=== PATIENT | female | born 1990 | race Caucasian/White ===

== ENCOUNTER 2018-03-10 15:53 | Emergency (ER) | payer MEDICAID, OTHER ==
[2018-03-10] MEDS ORDERED: Sodium Chloride 0.9% 1,000 ML IV ONE ×2 (16:05→18:00)
[2018-03-10] MEDS ORDERED: Folic Acid 1 MG Tab PO ONE (16:07)
[2018-03-10] MEDS ORDERED: Thiamine 100 MG in Sodium Chloride 0.9% 100 ML IV ONE (16:07)
[2018-03-10] MEDS ORDERED: diphenhydrAMINE 50 MG/ML SDV IVPUSH ONE (16:21)
[2018-03-10] MEDS ORDERED: Ondansetron 4 MG/2 ML SDV IVPUSH ONE (16:40)
--- NOTE | 2018-03-10 17:29 | EDM.PDOC ---
ED HPI GENERAL MEDICAL PROBLEM - General Chief Complaint: Drug or Alcohol Abuse Stated Complaint: ANXIETY Time Seen by Provider: 03/10/18 15:53 Source of Information: Reports: Patient, Family History Limitations: Reports: Respiratory Distress - History of Present Illness INITIAL COMMENTS - FREE TEXT/NARRATIVE: 27 y.o.w.f came with her SO the ed due to severe anxiety, hyperventilating and carpopedal spasm. Ptwas drinking in the past few days hard liquor. Las drink was last night. Pt denies Drug use, , no C/P. pt had those symptoms never before. No other acute medical issues. BP 144/83 puls ox 100 on RA temp 98.2 HR 140 Onset: Today Onset Date: 03/10/18 Onset Time: 14:00 Duration: Hour(s):, Getting Worse Location: Reports: Generalized Quality: Reports: Ache Severity: Moderate Improves with: Reports: Rest Worsens with: Reports: Movement Context: Reports: Other Associated Symptoms: Reports: Shortness of Breath, Other (hyperventilating) - Related Data Allergies Allergy/AdvReac Type Severity Reaction Status Date / Time sulfamethoxazole Allergy Rash Verified 10/14/14 11:03 [From Bactrim] trimethoprim [From Bactrim] Allergy Rash Verified 10/14/14 11:03 Home Meds: Home Meds Ciprofloxacin HCl [Cipro] 500 mg PO BID #20 tablet 03/10/18 [Rx] Social & Family History - Tobacco Use Smoking Status *Q: Never Smoker Second Hand Smoke Exposure: No - Alcohol Use Days Per Week of Alcohol Use: 0 - Recreational Drug Use Recreational Drug Use: No ED ROS GENERAL - Review of Systems Review Of Systems: Unable To Obtain - Physical Exam Exam: See Below Exam Limited By: Respiratory Distress General Appearance: Alert, WD/WN, Anxious, Moderate Distress Eye Exam: Bilateral Eye: Normal Inspection Ears: Normal External Exam, Normal Canal Nose: Normal Inspection, Normal Mucosa, No Blood Throat/Mouth: Normal Inspection, Normal Lips Head Exam: Atraumatic, Normocephalic Neck: Normal Inspection, Supple, Non-Tender, Full Range of Motion Respiratory/Chest: Lungs Clear, Normal Breath Sounds, Chest Non-Tender, Respiratory Distress (through hyperventilating) Cardiovascular: Normal Peripheral Pulses, Regular Rate, Rhythm, Tachycardia GI/Abdominal: Normal Bowel Sounds, Soft, Non-Tender, No Organomegaly (Female) Exam: Deferred Rectal (Female) Exam: Deferred Neuro Exam (Abbreviated): Alert, Oriented, CN II-XII Intact, Normal Cognition, Normal Gait Back Exam: Normal Inspection, Full Range of Motion Extremities: Normal Inspection, Normal Range of Motion, Non-Tender, No Pedal Edema Psychiatric: Anxious Skin Exam: Warm, Dry, Intact, Normal Color, No Rash Course - Vital Signs Text/Narrative:: 27 y.o.w.f came with her SO the ed due to severe anxiety, hyperventilating and carpopedal spasm. Ptwas drinking in the past few days hard liquor. Las drink was last night. Pt denies Drug use, , no C/P. pt had those symptoms never before. No other acute medical issues. BP 144/83 puls ox 100 on RA temp 98.2 HR 140 PE: 27 year old w f ETOH abuse ( a lot?) came to the ed with hyperventilation, anxiety and carpopedal spasm Labs; CBC nl, Na 13 Cl 93 UA pos for UTI UDS neg, ETOH 0.03 Impression: Hyperventilation, Dehydration,anxiety, UTI, H/O ETOH abuse Tx: NRBM, NS. Benadryl, Thiamin, Cipro Reecam: Improved, was ambulating fine, was in her usual state of health on D/C Plan: D/C with instruction Last Recorded V/S: Last Vital Signs Temp 36.8 C 03/10/18 16:14 Pulse 132 H 03/10/18 16:55 Resp 24 H 03/10/18 16:14 BP 144/83 H 03/10/18 16:14 Pulse Ox 100 03/10/18 16:55 - Orders/Labs/Meds Orders: Active Orders 24 hr Category Date Time Status DRUG SCREEN, URINE ALERE [URCHEM] Stat Lab 03/10/18 17:15 Ordered HCG QUALITATIVE,URINE [URCHEM] Stat Lab 03/10/18 19:12 Ordered UA W/MICROSCOPIC [URIN] Stat Lab 03/10/18 17:15 Ordered Labs: Laboratory Tests 03/10/18 03/10/18 03/10/18 Range/Units 16:25 16:25 16:25 WBC 8.6 (4.5-12.0) X10-3/uL RBC 4.21 (3.23-5.20) x10(6)uL Hgb 14.1 (11.5-15.5) g/dL Hct 41.0 (30.0-51.3) % MCV 97.2 H (80-96) fL MCH 33.4 (27.7-33.6) pg MCHC 34.4 (32.2-35.4) g/dL RDW 11.8 (11.5-15.5) % Plt Count 299 (125-369) X10(3)uL MPV 7.5 (7.4-10.4) fL Neut % (Auto) 78.7 (46-82) % Lymph % (Auto) 15.9 (13-37) % [place] % (Auto) 5.1 (4-12) % Eos % (Auto) 0 L (1.0-5.0) % Baso % (Auto) 0 (0-2) % Neut # (Auto) 6.8 (1.6-8.3) # Lymph # (Auto) 1.4 (0.6-5.0) # [place] # (Auto) 0.4 (0.0-1.3) # Eos # (Auto) 0.0 (0.0-0.8) # Baso # (Auto) 0.0 (0.0-0.2) # ABG pH (7.35-7.45) ABG pCO2 (35-45) mmHg ABG pO2 (83-108) mmHg ABG HCO3 (22-26) mmol/L ABG O2 Saturation (96-97) % ABG Base Excess (-2-2) Ko Test O2 Delivery Device Sodium 133 L (135-145) mmol/L Potassium 3.6 (3.5-5.3) mmol/L Chloride 93 L (100-110) mmol/L Carbon Dioxide 19 L (21-32) mmol/L BUN 14 (7-18) mg/dL Creatinine 1.0 (0.55-1.02) mg/dL Est Cr Clr Drug Dosing TNP Estimated GFR (MDRD) > 60 (>60) BUN/Creatinine Ratio 14.0 (9-20) Glucose 158 H (80-116) mg/dL Calcium 8.6 (8.6-10.2) mg/dL Urine Color (YELLOW) Urine Appearance (CLEAR) Urine pH (5.0-6.5) Ur Specific [place] (1.010-1.025) Urine Protein (NEGATIVE) mg/dL Urine Glucose (UA) (NEGATIVE) mg/dL Urine Ketones (NEGATIVE) mg/dL Urine Occult Blood (NEGATIVE) Urine Nitrite (NEGATIVE) Urine Bilirubin (NEGATIVE) Urine Urobilinogen (NEGATIVE) mg/dL Ur Leukocyte Esterase (NEGATIVE) Urine RBC (0) Urine WBC (0) Ur Squamous Epith Cells (NS,R,O) Urine Bacteria (NS) Urine Opiates Screen (NEGATIVE) Ur Oxycodone Screen (NEGATIVE) Ur Propoxyphene Screen (NEGATIVE) Ur Barbituates Screen (NEGATIVE) Ur Tricyclics Screen (NEGATIVE) Ur Phencyclidine Scrn (NEGATIVE) Ur Amphetamine Screen (NEGATIVE) Urine MDMA Screen (NEGATIVE) U Benzodiazepines Scrn (NEGATIVE) U Cocaine Metab Screen (NEGATIVE) U Marijuana (THC) Screen (NEGATIVE) Ethyl Alcohol < 0.03 (<0.03) % 03/10/18 03/10/18 03/10/18 Range/Units 16:34 17:15 17:15 WBC (4.5-12.0) X10-3/uL RBC (3.23-5.20) x10(6)uL Hgb (11.5-15.5) g/dL Hct (30.0-51.3) % MCV (80-96) fL MCH (27.7-33.6) pg MCHC (32.2-35.4) g/dL RDW (11.5-15.5) % Plt Count (125-369) X10(3)uL MPV (7.4-10.4) fL Neut % (Auto) (46-82) % Lymph % (Auto) (13-37) % [place] % (Auto) (4-12) % Eos % (Auto) (1.0-5.0) % Baso % (Auto) (0-2) % Neut # (Auto) (1.6-8.3) # Lymph # (Auto) (0.6-5.0) # [place] # (Auto) (0.0-1.3) # Eos # (Auto) (0.0-0.8) # Baso # (Auto) (0.0-0.2) # ABG pH 7.53 H (7.35-7.45) ABG pCO2 20 L (35-45) mmHg ABG pO2 78 L (83-108) mmHg ABG HCO3 17 L (22-26) mmol/L ABG O2 Saturation 87 L (96-97) % ABG Base Excess -3.2 L (-2-2) Ko Test Passed O2 Delivery Device Room air Sodium (135-145) mmol/L Potassium (3.5-5.3) mmol/L Chloride (100-110) mmol/L Carbon Dioxide (21-32) mmol/L BUN (7-18) mg/dL Creatinine (0.55-1.02) mg/dL Est Cr Clr Drug Dosing Estimated GFR (MDRD) (>60) BUN/Creatinine Ratio (9-20) Glucose (80-116) mg/dL Calcium (8.6-10.2) mg/dL Urine Color Yellow (YELLOW) Urine Appearance Slightly cloudy (CLEAR) Urine pH 6.0 (5.0-6.5) Ur Specific [place] 1.015 (1.010-1.025) Urine Protein Negative (NEGATIVE) mg/dL Urine Glucose (UA) Normal (NEGATIVE) mg/dL Urine Ketones 15 H (NEGATIVE) mg/dL Urine Occult Blood Negative (NEGATIVE) Urine Nitrite Negative (NEGATIVE) Urine Bilirubin Negative (NEGATIVE) Urine Urobilinogen Normal (NEGATIVE) mg/dL Ur Leukocyte Esterase Moderate H (NEGATIVE) Urine RBC 0-5 (0) Urine WBC 5-10 (0) Ur Squamous Epith Cells Few H (NS,R,O) Urine Bacteria Few H (NS) Urine Opiates Screen Negative (NEGATIVE) Ur Oxycodone Screen Negative (NEGATIVE) Ur Propoxyphene Screen Negative (NEGATIVE) Ur Barbituates Screen Negative (NEGATIVE) Ur Tricyclics Screen Negative (NEGATIVE) Ur Phencyclidine Scrn Negative (NEGATIVE) Ur Amphetamine Screen Negative (NEGATIVE) Urine MDMA Screen Negative (NEGATIVE) U Benzodiazepines Scrn Negative (NEGATIVE) U Cocaine Metab Screen Negative (NEGATIVE) U Marijuana (THC) Screen Negative (NEGATIVE) Ethyl Alcohol (<0.03) % Meds: Medications Discontinued Medications Generic Name Dose Route Start Last Admin Trade Name Freq PRN Reason Stop Dose Admin Ciprofloxacin 500 mg 03/10/18 17:44 03/10/18 18:55 Ciprofloxacin Hcl PO 03/10/18 17:45 500 mg ONETIME ONE Administration Diphenhydramine HCl 50 mg 03/10/18 16:21 03/10/18 16:28 Benadryl IVPUSH 03/10/18 16:22 50 mg ONETIME ONE Administration Folic Acid 1 mg 03/10/18 16:07 03/10/18 16:16 Folic Acid PO 03/10/18 16:08 1 mg ONETIME ONE Administration Sodium Chloride 1,000 mls @ 999 mls/hr 03/10/18 16:05 03/10/18 16:18 Normal Saline IV 03/10/18 17:05 999 mls/hr .BOLUS ONE Administration Thiamine HCl 100 mg/ Sodium 101 mls @ 202 mls/hr 03/10/18 16:07 03/10/18 16: 18 Chloride IV 03/10/18 16:08 202 mls/hr ONETIME ONE Administration Ondansetron HCl 8 mg 03/10/18 16:40 03/10/18 16:51 Zofran IVPUSH 03/10/18 16:41 8 mg ONETIME ONE Administration Departure - Departure Time of Disposition: 18:10 Disposition: Home, Self-Care 01 Condition: Good Clinical Impression: Hyperventilation syndrome, Dehydration, H/O ETOH abuse UTI (urinary tract infection) Qualifiers: Urinary tract infection type: acute cystitis Hematuria presence: without hematuria Qualified Code(s): N30.00 - Acute cystitis without hematuria - Discharge Information Prescriptions: Ciprofloxacin HCl [Cipro] 500 mg PO BID #20 tablet Instructions: Alcohol Withdrawal, Dehydration, Adult, [id number], Urinary Tract Infection, Adult, Ciprofloxacin tablets Referrals: Domenic Salomon MD [Primary Care Provider] - Forms: ED Department Discharge Additional Instructions: Please increase water intake, please avoid alcohol, please take the Cipro as recommended, please f/u, come back if your symptoms get worse acutely. - My Orders Last 24 Hours: My Active Orders 03/10/18 17:15 DRUG SCREEN, URINE ALERE [URCHEM] Stat UA W/MICROSCOPIC [URIN] Stat 03/10/18 19:12 HCG QUALITATIVE,URINE [URCHEM] Stat - Assessment/Plan Last 24 Hours: My Active Orders 03/10/18 17:15 DRUG SCREEN, URINE ALERE [URCHEM] Stat UA W/MICROSCOPIC [URIN] Stat 03/10/18 19:12 HCG QUALITATIVE,URINE [URCHEM] Stat
[2018-03-10] MEDS ORDERED: Ciprofloxacin 500 MG Tab PO ONE (17:44)
== END 2018-03-10 19:00 | disposition home or self-care (01) ==
LOC: FB.ED 15:53
DX: E86.0 Dehydration (principal); F41.9 Anxiety disorder, unspecified; F45.8 Other somatoform disorders; N30.00 Acute cystitis without hematuria; F10.10 Alcohol abuse, uncomplicated; Z88.2 Allergy status to sulfonamides; Z88.1 Allergy status to other antibiotic agents
CPT/HCPCS: 36415; 36600; 80048; 80305; 81001; 81025; 82803; 85025; 96361; 96365; 96375; 99284; A9270; G0480; J1200; J2405; J3411; J7030; J7040

== ENCOUNTER 2019-04-30 13:23 | Emergency (ER) | payer MEDICAID ==
[2019-04-30] MEDS ORDERED: Sodium Chloride 0.9% 1,000 ML IV ONE ×2 (13:37→14:19)
[2019-04-30] MEDS ORDERED: Thiamine 100 MG in Sodium Chloride 0.9% 100 ML IV ONE (13:40)
[2019-04-30] MEDS ORDERED: Sodium Chloride 0.9% 10 ML Syringe FLUSH PRN (13:40)
[2019-04-30] MEDS ORDERED: Thiamine 200 MG/2 ML MDV IM STA (13:41)
--- NOTE | 2019-04-30 13:48 | EDM.PDOCBH ---
ED HPI GENERAL MEDICAL PROBLEM - General Chief Complaint: Drug or Alcohol Abuse Stated Complaint: PANIC ATTACK AND WITHDRAW Time Seen by Provider: 04/30/19 13:23 Source of Information: Reports: Patient, Family (Mom) History Limitations: Reports: Other (anxious) - History of Present Illness INITIAL COMMENTS - FREE TEXT/NARRATIVE: 29 y.o.w.[place] came with her mom to the ED 1 days after she was heavily drinking ETOH because her boyfriend broke up with her. Pt was sober since June last year and started drinking yesterday again. Pt denied trauma. Pt is very anxious and restless, requesting Ativan, what she had in te past. Pt denies . No Trauma, no N/V/D no SOB or chest pain. No other acute Med issues. BP 143/90 Pulse 132 RR 20 Pulse ox 100% on RA. Temp 36.65 Onset Date: 04/29/19 Onset Time: 09:00 Duration: Hour(s):, Intermittent Location: Reports: Generalized Quality: Reports: Other (anxious) Severity: Moderate Improves with: Reports: Medication Worsens with: Reports: Other (ETOH withdrawl ) Context: Reports: Other (ETOH abuse > 24 hours ago. ) Associated Symptoms: Reports: Loss of Appetite Left hand Pain Score (Numeric/FACES): 3 - Related Data Allergies Allergy/AdvReac Type Severity Reaction Status Date / Time sulfamethoxazole Allergy Rash Verified 04/30/19 13:30 [From Bactrim] trimethoprim [From Bactrim] Allergy Rash Verified 04/30/19 13:30 Home Meds: Home Meds Magnesium Oxide [Magnesium] 400 mg PO DAILY #4 capsule 04/30/19 [Rx] Past Medical History Psychiatric History: Reports: Anxiety Social & Family History - Family History Family Medical History: Noncontributory - Caffeine Use Caffeine Use: Reports: Soda ED ROS GENERAL - Review of Systems Review Of Systems: See Below Constitutional: Reports: Decreased Appetite HEENT: Reports: No Symptoms Respiratory: Reports: No Symptoms Cardiovascular: Reports: No Symptoms Endocrine: Reports: No Symptoms GI/Abdominal: Reports: No Symptoms : Reports: No Symptoms Musculoskeletal: Reports: No Symptoms Skin: Reports: No Symptoms Neurological: Reports: No Symptoms Psychiatric: Reports: Anxiety Hematologic/Lymphatic: Reports: No Symptoms Immunologic: Reports: No Symptoms ED EXAM, BEHAVIORAL HEALTH - Physical Exam Exam: See Below Exam Limited By: Other (anxious) General Appearance: Alert, WD/WN, Moderate Distress Eye Exam: Bilateral Eye: Normal Inspection Ears: Normal External Exam, Normal Canal Nose: Normal Inspection, Normal Mucosa, No Blood Throat/Mouth: Normal Inspection, Normal Lips, Normal Voice, No Airway Compromise , Other (dry mucosal membrane) Head: Atraumatic, Normocephalic Neck: Normal Inspection, Supple, Non-Tender Respiratory/Chest: No Respiratory Distress, Lungs Clear, Normal Breath Sounds, Chest Non-Tender Cardiovascular: Regular Rate, Rhythm, No Edema, Tachycardia GI/Abdominal: Normal Bowel Sounds, Soft, Non-Tender, No Organomegaly, No Mass, Pelvis Stable (Female) Exam: Deferred Rectal (Female) Exam: Deferred Back Exam: Normal Inspection, Full Range of Motion Extremities: Normal Inspection, Normal Range of Motion, Non-Tender, Normal Capillary Refill Neurological: Alert, Normal Mood/Affect, CN II-XII Intact, Normal Cognition, No Motor/Sensory Deficits, Oriented x 3 Psychiatric: Alert, Oriented, Restless, Agitated Skin Exam: Warm, Dry, Intact, Normal color, No rash COURSE, BEHAVIORAL HEALTH COMP - Course Vital Signs: Last Vital Signs Temp 36.9 C 04/30/19 15:30 Pulse 91 04/30/19 15:30 Resp 16 04/30/19 15:30 BP 109/87 04/30/19 15:30 Pulse Ox 100 04/30/19 15:30 29 y.o.w.f came with her mom to the ED 1 days after she was heavily drinking ETOH because her boyfriend broke up with her. Pt was sober since June last year and started drinking yesterday again. Pt denied trauma. Pt is very anxious and restless, requesting Ativan, what she had in te past. Pt denies . No Trauma, no N/V/D no SOB or chest pain. No other acute Med issues. BP 143/90 Pulse 132 RR 20 Pulse ox 100% on RA. Temp 36.65 PE: WNWD W F anxious,restless Labs: Mg 1.5 Na 128 K 3.7 ETOH 0.03 UA: Neg for UTI, neg for HCG Impression: Low Mg, low Na, ETOH withdrawal, dehydration Tx: NS, Mg and Ativan po Reexam: Improved. Pt was ambulating fine Plan: D/C with instructions Orders, Labs, Meds: Laboratory Tests 04/30/19 04/30/19 04/30/19 Range/Units 13:50 13:50 13:50 WBC 14.2 H (4.5-12.0) X10-3/uL RBC 4.42 (3.23-5.20) x10(6)uL Hgb 14.5 (11.5-15.5) g/dL Hct 41.0 (30.0-51.3) % MCV 92.6 (80-96) fL MCH 32.7 (27.7-33.6) pg MCHC 35.3 (32.2-35.4) g/dL RDW 12.0 (11.5-15.5) % Plt Count 370 H (125-369) X10(3)uL MPV 7.2 L (7.4-10.4) fL Neut % (Auto) 83.8 H (46-82) % Lymph % (Auto) 12.2 L (13-37) % [place] % (Auto) 3.3 L (4-12) % Eos % (Auto) 0 L (1.0-5.0) % Baso % (Auto) 1 (0-2) % Neut # (Auto) 11.9 H (1.6-8.3) # Lymph # (Auto) 1.7 (0.6-5.0) # [place] # (Auto) 0.5 (0.0-1.3) # Eos # (Auto) 0.0 (0.0-0.8) # Baso # (Auto) 0.1 (0.0-0.2) # Sodium 128 L (135-145) mmol/L Potassium 3.7 (3.5-5.3) mmol/L Chloride 90 L (100-110) mmol/L Carbon Dioxide 22 (21-32) mmol/L BUN 12 (7-18) mg/dL Creatinine 0.9 (0.55-1.02) mg/dL Est Cr Clr Drug Dosing 74.92 mL/min Estimated GFR (MDRD) > 60 (>60) BUN/Creatinine Ratio 13.3 (9-20) Glucose 106 (80-116) mg/dL Calcium 8.9 (8.6-10.2) mg/dL Magnesium 1.5 L (1.8-2.5) mg/dL Urine Color (YELLOW) Urine Appearance (CLEAR) Urine pH (5.0-6.5) Ur Specific [place] (1.010-1.025) Urine Protein (NEGATIVE) mg/dL Urine Glucose (UA) (NORMAL) mg/dL Urine Ketones (NEGATIVE) mg/dL Urine Occult Blood (NEGATIVE) Urine Nitrite (NEGATIVE) Urine Bilirubin (NEGATIVE) Urine Urobilinogen (NEGATIVE) mg/dL Ur Leukocyte Esterase (NEGATIVE) Urine RBC (0-5) Urine WBC (0-5) Ur Squamous Epith Cells (NS,R,O) Urine Bacteria (NS) Urine HCG, Qual (NEGATIVE) Urine Opiates Screen (NEGATIVE) Ur Oxycodone Screen (NEGATIVE) Ur Propoxyphene Screen (NEGATIVE) Ur Barbituates Screen (NEGATIVE) Ur Tricyclics Screen (NEGATIVE) Ur Phencyclidine Scrn (NEGATIVE) Ur Amphetamine Screen (NEGATIVE) Urine MDMA Screen (NEGATIVE) U Benzodiazepines Scrn (NEGATIVE) U Cocaine Metab Screen (NEGATIVE) U Marijuana (THC) Screen (NEGATIVE) Ethyl Alcohol < 0.03 (<0.03) % 04/30/19 04/30/19 04/30/19 Range/Units 14:35 14:35 14:35 WBC (4.5-12.0) X10-3/uL RBC (3.23-5.20) x10(6)uL Hgb (11.5-15.5) g/dL Hct (30.0-51.3) % MCV (80-96) fL MCH (27.7-33.6) pg MCHC (32.2-35.4) g/dL RDW (11.5-15.5) % Plt Count (125-369) X10(3)uL MPV (7.4-10.4) fL Neut % (Auto) (46-82) % Lymph % (Auto) (13-37) % [place] % (Auto) (4-12) % Eos % (Auto) (1.0-5.0) % Baso % (Auto) (0-2) % Neut # (Auto) (1.6-8.3) # Lymph # (Auto) (0.6-5.0) # [place] # (Auto) (0.0-1.3) # Eos # (Auto) (0.0-0.8) # Baso # (Auto) (0.0-0.2) # Sodium (135-145) mmol/L Potassium (3.5-5.3) mmol/L Chloride (100-110) mmol/L Carbon Dioxide (21-32) mmol/L BUN (7-18) mg/dL Creatinine (0.55-1.02) mg/dL Est Cr Clr Drug Dosing mL/min Estimated GFR (MDRD) (>60) BUN/Creatinine Ratio (9-20) Glucose (80-116) mg/dL Calcium (8.6-10.2) mg/dL Magnesium (1.8-2.5) mg/dL Urine Color Yellow (YELLOW) Urine Appearance Clear (CLEAR) Urine pH 5.0 (5.0-6.5) Ur Specific [place] 1.005 L (1.010-1.025) Urine Protein Negative (NEGATIVE) mg/dL Urine Glucose (UA) Normal (NORMAL) mg/dL Urine Ketones 50 H (NEGATIVE) mg/dL Urine Occult Blood Large H (NEGATIVE) Urine Nitrite Negative (NEGATIVE) Urine Bilirubin Negative (NEGATIVE) Urine Urobilinogen Normal (NEGATIVE) mg/dL Ur Leukocyte Esterase Negative (NEGATIVE) Urine RBC 5-10 H (0-5) Urine WBC 0-5 (0-5) Ur Squamous Epith Cells Occasional (NS,R,O) Urine Bacteria Few H (NS) Urine HCG, Qual Negative (NEGATIVE) Urine Opiates Screen Negative (NEGATIVE) Ur Oxycodone Screen Negative (NEGATIVE) Ur Propoxyphene Screen Negative (NEGATIVE) Ur Barbituates Screen Negative (NEGATIVE) Ur Tricyclics Screen Negative (NEGATIVE) Ur Phencyclidine Scrn Negative (NEGATIVE) Ur Amphetamine Screen Negative (NEGATIVE) Urine MDMA Screen Negative (NEGATIVE) U Benzodiazepines Scrn Negative (NEGATIVE) U Cocaine Metab Screen Negative (NEGATIVE) U Marijuana (THC) Screen Negative (NEGATIVE) Ethyl Alcohol (<0.03) % Medications Discontinued Medications Generic Name Dose Route Start Last Admin Trade Name Freq PRN Reason Stop Dose Admin Sodium Chloride 1,000 mls @ 999 mls/hr 04/30/19 13:37 04/30/19 13:44 Normal Saline IV 04/30/19 14:37 999 mls/hr .BOLUS ONE Administration Thiamine HCl 100 mg/ Sodium 101 mls @ 202 mls/hr 04/30/19 13:40 04/30/19 13: 50 Chloride IV 04/30/19 13:41 Not Given ONETIME ONE Sodium Chloride 1,000 mls @ 999 mls/hr 04/30/19 14:19 04/30/19 14:41 Normal Saline IV 04/30/19 15:19 999 mls/hr .BOLUS ONE Administration Lorazepam 1 mg 04/30/19 14:41 04/30/19 14:44 Ativan PO 04/30/19 14:42 1 mg ONETIME ONE Administration Magnesium Chloride 64 mg 04/30/19 14:08 04/30/19 14:13 Mag-64 PO 04/30/19 14:09 64 mg ONETIME STA Administration Sodium Chloride 10 ml 04/30/19 13:40 04/30/19 13:40 Saline Flush FLUSH 10 ml ASDIRECTED PRN Administration IV Use Thiamine HCl 100 mg 04/30/19 13:41 04/30/19 13:46 Vitamin B-1 IM 04/30/19 13:42 100 mg ONETIME STA Administration Departure - Departure Time of Disposition: 15:19 Disposition: Home, Self-Care 01 Condition: Good Clinical Impression: ETOH abuse, Hyponatremia, Hypomagnesemia - Discharge Information Prescriptions: Magnesium Oxide [Magnesium] 400 mg PO DAILY #4 capsule Instructions: Alcohol Use Disorder, Dehydration, Adult, [id number] Referrals: Domenic Salomon MD [Primary Care Provider] - Forms: ED Department Discharge Additional Instructions: Please increase water intake, please take magnesium as recommended, please get the Mg level check in 1 week. Please avoid any ETOH use. Please come back if your symptoms get worse acutely
[2019-04-30] MEDS ORDERED: Magnesium Chloride 64 MG Tab.ER PO STA (14:08)
[2019-04-30] MEDS ORDERED: LORazepam 1 MG Tab PO ONE (14:41)
== END 2019-04-30 15:45 | disposition home or self-care (01) ==
LOC: FB.ED 13:23
DX: F10.239 Alcohol dependence with withdrawal, unspecified (principal); E86.0 Dehydration; E83.42 Hypomagnesemia; E87.1 Hypo-osmolality and hyponatremia; Z88.2 Allergy status to sulfonamides; Z88.1 Allergy status to other antibiotic agents
CPT/HCPCS: 36415; 80048; 80305; 81001; 81025; 83735; 85025; 96360; 96361; 96372; 99283; A9270; G0480; J3411; J7030

== ENCOUNTER 2025-01-31 02:54 | Emergency (ER) | payer SELFPAY ==
[2025-01-31 03:30] LABS: BASOPHILS ABSOLUTE AUTO 0.1 x10-3/uL (0.0-0.1); BASOPHILS PERCENT AUTO 1.3 % (0.2-1.5); EOSINOPHILS ABSOLUTE AUTO 0.1 x10-3/uL (0.0-0.8); EOSINOPHILS PERCENT AUTO 1.5 % (0.6-8.1); HEMATOCRIT 40.6 % (34.2-48.2); HEMOGLOBIN 13.9 g/dL (11.4-15.5); LYMPHOCYTES ABSOLUTE AUTO 2.9 x10-3/uL (1.0-4.4); LYMPHOCYTES PERCENT AUTO 48.6 % (18.4-52.1); MEAN CORPUSCULAR HEMOGLOBIN 33.2 pg (23.9-33.9); MEAN CORPUSCULAR HGB CONC 34.3 g/dL (31.9-34.8); MEAN CORPUSCULAR VOLUME 96.9 fL (76.7-100.5); MEAN PLATELET VOLUME 6.4 fL (7.1-12.4); MONOCYTES ABSOLUTE AUTO 0.5 x10-3/uL (0.3-1.0); MONOCYTES PERCENT AUTO 9.2 % (4.4-15.7); NEUTROPHILS ABSOLUTE AUTO 2.3 x10-3/uL (1.5-6.3); NEUTROPHILS PERCENT AUTO 39.4 % (30.8-76.2); PLATELET COUNT,PLT 348 x10(3)uL (151-488); RED BLOOD CELL COUNT 4.19 x10(6)uL (3.60-5.20); RED CELL DISTRIBUTION WIDTH 13.5 % (12.3-16.5); WHITE BLOOD CELL COUNT,WBC 5.9 x10-3/uL (3.0-10.3)
[2025-01-31 03:34] LABS: BLOOD UREA NITROGEN,BUN 8 mg/dL (7-18); BUN/CREATININE RATIO 8.9 (9-20); CALCIUM 8.1 mg/dL (8.6-10.2); CARBON DIOXIDE,CO2 26 mmol/L (21-32); CHLORIDE,CL 103 mmol/L (100-110); CREATININE 0.9 mg/dL (0.55-1.02); EST CRCL DRUG DOSING (CG) 68.35 mL/min; ESTIMATED GFR 85 mL/min (>60); GLUCOSE RANDOM 147 mg/dL (80-116); POTASSIUM,K 3.5 mmol/L (3.5-5.3); SODIUM,NA 143 mmol/L (135-145)
[2025-01-31 03:40] LABS: A/G RATIO 0.9; ALANINE AMINOTRANSFERASE,ALT 32 U/L (12-36); ALBUMIN 3.7 g/dL (3.5-5.2); ALKALINE PHOSPHATASE 55 IU/L (56-112); ASPARTATE AMNIOTRANSFERASE,AST 15 IU/L (5-25); BILIRUBIN TOTAL 0.2 mg/dL (0.1-1.3); MAGNESIUM 1.9 mg/dL (1.8-2.5); PROTEIN TOTAL,TP 7.8 g/dL (6.0-8.0)
== END 2025-01-31 04:03 | disposition home or self-care (01) ==
LOC: FB.ED 02:54
DX: F33.1 Major depressive disorder, recurrent, moderate (principal); F10.10 Alcohol abuse, uncomplicated; Z88.8 Allergy status to other drugs, medicaments and biological substances; Z79.899 Other long term (current) drug therapy
CPT/HCPCS: 36415; 80053; 80307; 83735; 84484; 85025; 93005; 99284